=== PATIENT | female | born 1960 | race Caucasian/White ===

== ENCOUNTER 2017-07-23 13:48 | Emergency (ER) | payer MEDICAID ==
[~2017-07-23] VITALS: Ht 157.5 cm; Wt 68.0 kg
[~2017-07-23 13:48] MED LIST: ALBMDI INH; CYCL-10 PO; DEXL60CA3 PO; FLUT1AER INH; LORA10TA7 PO; NAPR-688 PO; PHEN-561 PO; TOPAMAX PO; TRAZ-123 PO
[2017-07-23 14:02] VITALS: BP_SYST 116
[2017-07-23] MEDS ORDERED: LIDOCAINE/EPI 2% 1:100000 20 ML VIAL INJ ONE (14:45)
[2017-07-23] MEDS ORDERED: SULFAMETHOXAZOLE/TRIMETHOPR DS 1 TABLET PO ONE (14:45)
[2017-07-23] MEDS ORDERED: CEPHALEXIN 500 MG CAPSULE PO ONE (14:45)
[2017-07-23] MEDS ORDERED: HYDROcodone/ACETAMIN 7.5-325 MG TAB PO ONE (15:30)
[2017-07-23 16:18] VITALS: BP_SYST 116
== END 2017-07-23 16:18 | disposition home or self-care (01) ==
LOC: SED 13:48
DX: M79.605 Pain in left leg (principal); J44.9 Chronic obstructive pulmonary disease, unspecified; K21.9 Gastro-esophageal reflux disease without esophagitis; Z86.14 Personal history of Methicillin resistant Staphylococcus aureus infection; Z91.041 Radiographic dye allergy status; Z88.5 Allergy status to narcotic agent; Z79.899 Other long term (current) drug therapy
CPT/HCPCS: 99284

== ENCOUNTER 2017-09-05 18:03 | Inpatient (IN) | payer MEDICAID ==
[~2017-09-05] VITALS: Ht 157.5 cm; Wt 67.6 kg
[2017-09-05 18:24] VITALS: BP_SYST 132
[2017-09-05] MEDS ORDERED: NACL 0.9% 1,000 ML IV ONE ×2 (19:15→20:15)
[2017-09-05 19:27] LABS: BASOPHILS # (AUTO) 0.1 K/uL (0.0-0.2); BASOPHILS % (AUTO) 1.3 % (0.0-2.0); EOSINOPHILS # (AUTO) 0.1 K/uL (0.0-0.4); EOSINOPHILS % (AUTO) 2.4 % (0.0-4.0); HEMATOCRIT 33.3 % (36-48); LYMPHOCYTES # (AUTO) 1.6 K/uL (1.0-5.5); LYMPHOCYTES % (AUTO) 34.2 % (20.5-51.5); MEAN CORPUSCULAR HEMOGLOBIN 27 pg (27-31); MEAN CORPUSCULAR HGB CONC 33 % (32-36); MEAN CORPUSCULAR VOLUME 82 fL (79.0-98.0); MONOCYTES # (AUTO) 0.4 K/uL (0.0-1.0); MONOCYTES % (AUTO) 7.9 % (1.7-9.3); NEUTROPHILS # (AUTO) 2.4 K/uL (1.8-7.7); NEUTROPHILS % (AUTO) 54.2 % (40.0-70.0); PLATELET COUNT (AUTO) 256 K/uL (130-430); RED BLOOD CELL COUNT(AUTO) 4.07 MIL/uL (4.2-6.2); RED CELL DISTRIBUTION WIDTH 15.6 % (9.0-15.0); WHITE BLOOD COUNT (AUTO) 4.6 K/uL (4.8-10.8)
[2017-09-05 19:36] LABS: CALCIUM 8.6 mg/dL (8.4-11.0); CREATININE 1.14 mg/dL (0.55-1.30); POTASSIUM 3.1 mmol/L (3.5-5.1)
[2017-09-05 19:40] LABS: ALBUMIN 3.8 g/dL (3.4-4.8); TOTAL BILIRUBIN 0.3 mg/dL (0.0-1.0)
[2017-09-05] MEDS ORDERED: KETOROLAC TROMETHAMINE 30 MG VIAL IVP ONE (20:15)
[2017-09-05] MEDS ORDERED: LEVOFLOXACIN 500 MG/D5W 100 ML IV ONE (20:15)
[2017-09-05] MEDS ORDERED: TRAZ-126 PO (20:32)
[2017-09-05] MEDS ORDERED: LIDP TP (20:33)
[2017-09-05] MEDS ORDERED: DICL100G16 TP (20:35)
[2017-09-05] MEDS ORDERED: FLUT1BLS3 INH (20:36)
[2017-09-05] MEDS ORDERED: OXYC-130 PO (20:37)
[2017-09-05] MEDS ORDERED: TOPI100T11 PO (20:38)
[2017-09-05] MEDS ORDERED: BUPR-120 PO (20:40)
[2017-09-05] MEDS ORDERED: ALEN10TA6 PO (20:40)
[2017-09-05] MEDS ORDERED: ONDANSETRON HCL 4 MG/2 ML VIAL IVP ONE (21:15)
[2017-09-05 22:28] LABS: BILIRUBIN,URINE NEGATIVE (NEGATIVE); BLOOD, URINE NEGATIVE (NEGATIVE); CLARITY/URINE CLEAR (CLEAR); COLOR,URINE YELLOW (YELLOW); GLUCOSE,URINE NEGATIVE (NEGATIVE); KETONES,URINE NEGATIVE (NEGATIVE); LEUKOCYTE ESTERASE ,URINE NEGATIVE (NEGATIVE); NITRITE, URINE NEGATIVE (NEGATIVE); PH,URINE 7.5 (5.0-8.0); PROTEIN URINE NEGATIVE (NEGATIVE); UROBILINOGEN,URINE 0.2 (0.2-1.0)
[2017-09-05 23:50] VITALS: BP_SYST 106
[2017-09-05] MEDS: D5/0.45 NS 1,000 ML IV SCH (23:58)
[2017-09-06] MEDS ORDERED: DIPHENOXYLATE HCL/ATROP SULF 2.5 MG TAB PO PRN (01:15)
[2017-09-06] MEDS: ONDANSETRON HCL 4 MG/2 ML VIAL IVP PRN ×2 (01:16→09:07)
[2017-09-06] MEDS: KETOROLAC TROMETHAMINE 15 MG VIAL IVP PRN ×4 (01:18→21:10)
[2017-09-06 08:00] VITALS: BP_SYST 94
[2017-09-06] MEDS ORDERED: FLUTICASONE/VILANTEROL 1 EACH BLST.W.DEV INH SCH (09:00)
[2017-09-06] MEDS: LORATADINE 10 MG TABLET PO SCH (09:08)
[2017-09-06] MEDS: buPROPion HCL 150 MG XL TAB PO SCH (09:08)
[2017-09-06] MEDS: CHOLESTYRAMINE/SUCROSE 4 GM/PACKET PO SCH ×3 (09:08→20:47)
[2017-09-06] MEDS: OXYCODONE/ACETAMINOPHEN 5-325 TABLET PO PRN ×2 (09:09→14:37)
[2017-09-06] MEDS: FLUTICASONE/VILANTEROL 1 EACH BLST.W.DEV INH SCH (09:15)
[2017-09-06] MEDS: LIDOCAINE PATCH 5% 1 EA TP SCH ×2 (10:08→20:47)
[2017-09-06 10:11] VITALS: BP_SYST 98
[2017-09-06 12:55] VITALS: BP_SYST 102
[2017-09-06] MEDS: D5/0.45 NS 1,000 ML IV SCH (15:28)
[2017-09-06 16:55] VITALS: BP_SYST 126
[2017-09-06 19:04] LABS: CALCIUM 7.5 mg/dL (8.4-11.0); CREATININE 0.89 mg/dL (0.55-1.30)
[2017-09-06 19:07] LABS: POTASSIUM 2.9 mmol/L (3.5-5.1)
[2017-09-06 20:00] VITALS: BP_SYST 128
[2017-09-06] MEDS ORDERED: KCL 40 mEq in 100 mL (PREMIX) 100 ML IV ONE (20:00)
[2017-09-06] MEDS ORDERED: POTASSIUM CHLORIDE 40 MEQ in NS 250 ML IV ONE (20:30)
[2017-09-06] MEDS ORDERED: POTASSIUM CHLORIDE 20 MEQ TAB.PRT.SR PO ONE (20:30)
[2017-09-06] MEDS: TOPIRAMATE 100 MG TABLET(Topamax) PO SCH (20:48)
[2017-09-06] MEDS: traZODone HCL 50 MG TABLET (DESYREL) PO SCH (20:48)
[2017-09-06] MEDS ORDERED: KCL 20 mEq in 100 mL (PREMIX) 100 ML IV ONE ×2 (21:00→23:00)
[2017-09-07 00:43] VITALS: BP_SYST 96
[2017-09-07] MEDS: D5/0.45 NS 1,000 ML IV SCH ×4 (00:47→23:20)
[2017-09-07 08:40] VITALS: BP_SYST 107
[2017-09-07] MEDS: FLUTICASONE/VILANTEROL 1 EACH BLST.W.DEV INH SCH (09:52)
[2017-09-07] MEDS: buPROPion HCL 150 MG XL TAB PO SCH (09:53)
[2017-09-07] MEDS: CHOLESTYRAMINE/SUCROSE 4 GM/PACKET PO SCH ×3 (09:53→21:14)
[2017-09-07] MEDS: LIDOCAINE PATCH 5% 1 EA TP SCH ×2 (09:53→21:14)
[2017-09-07] MEDS: LORATADINE 10 MG TABLET PO SCH (09:53)
[2017-09-07 12:00] VITALS: BP_SYST 109
[2017-09-07] MEDS: KETOROLAC TROMETHAMINE 15 MG VIAL IVP PRN ×2 (12:23→21:13)
[2017-09-07] MEDS: OXYCODONE/ACETAMINOPHEN 5-325 TABLET PO PRN ×2 (15:10→22:46)
[2017-09-07 16:00] VITALS: BP_SYST 105
[2017-09-07] MEDS: ONDANSETRON HCL 4 MG/2 ML VIAL IVP PRN (18:27)
[2017-09-07 21:10] VITALS: BP_SYST 102
[2017-09-07] MEDS: traZODone HCL 50 MG TABLET (DESYREL) PO SCH (21:13)
[2017-09-07] MEDS: TOPIRAMATE 100 MG TABLET(Topamax) PO SCH (21:13)
[2017-09-08 00:20] VITALS: BP_SYST 106
[2017-09-08] MEDS: KETOROLAC TROMETHAMINE 15 MG VIAL IVP PRN ×2 (06:01→22:19)
[2017-09-08 08:17] VITALS: BP_SYST 110
[2017-09-08] MEDS: buPROPion HCL 150 MG XL TAB PO SCH (08:23)
[2017-09-08] MEDS: ONDANSETRON HCL 4 MG/2 ML VIAL IVP PRN ×2 (08:24→21:21)
[2017-09-08] MEDS: D5/0.45 NS 1,000 ML IV SCH ×3 (08:24→22:19)
[2017-09-08] MEDS: FLUTICASONE/VILANTEROL 1 EACH BLST.W.DEV INH SCH (08:24)
[2017-09-08] MEDS: LORATADINE 10 MG TABLET PO SCH (08:24)
[2017-09-08] MEDS: CHOLESTYRAMINE/SUCROSE 4 GM/PACKET PO SCH ×3 (08:24→21:20)
[2017-09-08] MEDS: LIDOCAINE PATCH 5% 1 EA TP SCH ×2 (08:26→21:20)
[2017-09-08 12:00] VITALS: BP_SYST 115
[2017-09-08] MEDS ORDERED: fentaNYL CITRATE/PF 100 MCG/2 ML AMP ONE (12:54)
[2017-09-08] MEDS ORDERED: SIMETHICONE 40 MG/0.6 ML ML ONE (12:55)
[2017-09-08] MEDS ORDERED: MIDAZOLAM HCL 5 MG/5 ML VIAL ONE (12:55)
[2017-09-08] MEDS: fentaNYL CITRATE/PF 100 MCG/2 ML AMP ONE ×2 (12:58→14:08)
[2017-09-08] MEDS: MIDAZOLAM HCL 5 MG/5 ML VIAL ONE ×3 (13:00→14:08)
[2017-09-08 16:00] VITALS: BP_SYST 118
[2017-09-08] MEDS: METOCLOPRAMIDE HCL 10 MG/2 ML VIAL IVP SCH ×2 (17:09→23:12)
[2017-09-08 20:00] VITALS: BP_SYST 99
[2017-09-08] MEDS: TOPIRAMATE 100 MG TABLET(Topamax) PO SCH (21:20)
[2017-09-08] MEDS: traZODone HCL 50 MG TABLET (DESYREL) PO SCH (21:20)
[2017-09-08] MEDS: OXYCODONE/ACETAMINOPHEN 5-325 TABLET PO PRN (23:12)
[2017-09-09 02:01] VITALS: BP_SYST 108
[2017-09-09] MEDS: OXYCODONE/ACETAMINOPHEN 5-325 TABLET PO PRN ×3 (03:08→14:14)
[2017-09-09] MEDS: KETOROLAC TROMETHAMINE 15 MG VIAL IVP PRN ×2 (04:54→20:57)
[2017-09-09] MEDS: METOCLOPRAMIDE HCL 10 MG/2 ML VIAL IVP SCH ×3 (05:33→17:32)
[2017-09-09] MEDS: D5/0.45 NS 1,000 ML IV SCH ×2 (05:34→14:11)
[2017-09-09 07:47] VITALS: BP_SYST 92
[2017-09-09 07:56] LABS: EOSINOPHILS # (AUTO) 0.1 K/uL (0.0-0.4); EOSINOPHILS % (AUTO) 2.9 % (0.0-4.0); HEMATOCRIT 30.9 % (36-48); HEMOGLOBIN 10.1 g/dL (12.0-16.0); LYMPHOCYTES # (AUTO) 1.3 K/uL (1.0-5.5); LYMPHOCYTES % (AUTO) 27.5 % (20.5-51.5); MEAN CORPUSCULAR HEMOGLOBIN 27 pg (27-31); MEAN CORPUSCULAR HGB CONC 33 % (32-36); MEAN CORPUSCULAR VOLUME 83 fL (79.0-98.0); MONOCYTES # (AUTO) 0.4 K/uL (0.0-1.0); MONOCYTES % (AUTO) 7.4 % (1.7-9.3); NEUTROPHILS % (AUTO) 61.2 % (40.0-70.0); PLATELET COUNT (AUTO) 237 K/uL (130-430); RED BLOOD CELL COUNT(AUTO) 3.73 MIL/uL (4.2-6.2); RED CELL DISTRIBUTION WIDTH 15.3 % (9.0-15.0); WHITE BLOOD COUNT (AUTO) 4.9 K/uL (4.8-10.8)
[2017-09-09 08:12] LABS: CALCIUM 7.8 mg/dL (8.4-11.0); CREATININE 0.81 mg/dL (0.55-1.30); POTASSIUM 3.3 mmol/L (3.5-5.1)
[2017-09-09] MEDS: LORATADINE 10 MG TABLET PO SCH (08:13)
[2017-09-09] MEDS: buPROPion HCL 150 MG XL TAB PO SCH (08:13)
[2017-09-09] MEDS: CHOLESTYRAMINE/SUCROSE 4 GM/PACKET PO SCH ×3 (08:13→20:57)
[2017-09-09] MEDS: FLUTICASONE/VILANTEROL 1 EACH BLST.W.DEV INH SCH (08:13)
[2017-09-09] MEDS: LIDOCAINE PATCH 5% 1 EA TP SCH ×2 (08:13→20:57)
[2017-09-09] MEDS ORDERED: PANTOPRAZOLE SODIUM 40 MG TAB PO SCH (09:00)
[2017-09-09] MEDS ORDERED: POLYETHYLENE GLYCOL 3350, 17 GM/ POWD.PACK PO SCH (09:00)
[2017-09-09 12:38] VITALS: BP_SYST 93
[2017-09-09] MEDS ORDERED: POTASSIUM CHLORIDE 20 MEQ/PKT PACKET PO ONE (13:30)
[2017-09-09 17:11] VITALS: BP_SYST 95
[2017-09-09 17:44] VITALS: BP_SYST 92
[2017-09-09] MEDS: TOPIRAMATE 100 MG TABLET(Topamax) PO SCH (20:57)
[2017-09-09] MEDS: traZODone HCL 50 MG TABLET (DESYREL) PO SCH (20:57)
[2017-09-09 21:04] VITALS: BP_SYST 104
== END 2017-09-09 21:25 | disposition home or self-care (01) | DRG 249 ==
LOC: SED 18:03 → SMU 23:00
PROVIDERS: ADMIT Family Medicine; ATTEND Family Medicine
PROC: 0DB68ZX Excision of Stomach, Via Natural or Artificial Opening Endoscopic, Diagnostic (ICD-10-PCS; 2017-09-08)
PROC: 0DB98ZX Excision of Duodenum, Via Natural or Artificial Opening Endoscopic, Diagnostic (ICD-10-PCS; principal; 2017-09-08 12:50)
DX: A09 Infectious gastroenteritis and colitis, unspecified (principal); K31.84 Gastroparesis; F32.9 Major depressive disorder, single episode, unspecified; K44.9 Diaphragmatic hernia without obstruction or gangrene; G89.29 Other chronic pain; J44.9 Chronic obstructive pulmonary disease, unspecified; K21.9 Gastro-esophageal reflux disease without esophagitis; E86.0 Dehydration; D72.819 Decreased white blood cell count, unspecified; K57.90 Diverticulosis of intestine, part unspecified, without perforation or abscess without bleeding; K59.09 Other constipation; Z88.6 Allergy status to analgesic agent; Z88.8 Allergy status to other drugs, medicaments and biological substances; Z91.041 Radiographic dye allergy status; Z79.899 Other long term (current) drug therapy; Z90.49 Acquired absence of other specified parts of digestive tract; Z90.89 Acquired absence of other organs
CPT/HCPCS: 36415; 43239; 80048; 80053; 81003; 83605; 83690-TC; 83735-TC; 85025; 87040-TC; 87081; 88305; 88312; 88313; 96361; 96365; 96375; 99285; J1885; J1956; J2250; J2405; J2765; J3010; J3480; J7030

== ENCOUNTER 2017-09-27 21:09 | Emergency (ER) | payer MEDICAID ==
[~2017-09-27] VITALS: Ht 157.5 cm; Wt 69.4 kg
[~2017-09-27 21:09] MED LIST changes: -ALBMDI INH; +ALEN10TA6 PO; +BUPR-120 PO; -CYCL-10 PO; -DEXL60CA3 PO; +DICL100G19 TP; -FLUT1AER INH; +FLUT1BLS3 INH; +LIDP TP; -NAPR-688 PO; +OXYC-130 PO; -PHEN-561 PO; -TOPAMAX PO; +TOPI100T11 PO; -TRAZ-123 PO; +TRAZ-126 PO
[2017-09-27 21:24] VITALS: BP_SYST 114
[2017-09-27] MEDS ORDERED: cefTRIAXone 1 GM in LIDOCAINE 1%, 20 ML MDV 2.1 ML IM ONE (21:45)
[2017-09-27] MEDS ORDERED: cefTRIAXone 1 GM IVPB PREMIX 50 ML IV ONE (21:45)
[2017-09-27 21:55] VITALS: BP_SYST 122
== END 2017-09-27 21:55 | disposition home or self-care (01) ==
LOC: SED 21:09
DX: L03.116 Cellulitis of left lower limb (principal); J44.9 Chronic obstructive pulmonary disease, unspecified; K21.9 Gastro-esophageal reflux disease without esophagitis; Z86.14 Personal history of Methicillin resistant Staphylococcus aureus infection; Z79.899 Other long term (current) drug therapy; Z88.6 Allergy status to analgesic agent; Z88.8 Allergy status to other drugs, medicaments and biological substances; W57.XXXA Bitten or stung by nonvenomous insect and other nonvenomous arthropods, initial encounter; Y93.89 Activity, other specified; Y92.89 Other specified places as the place of occurrence of the external cause; Y99.8 Other external cause status
CPT/HCPCS: 96372; 99283; J0696; J2001

== ENCOUNTER 2018-02-18 11:49 | Emergency (ER) | payer MEDICAID ==
[~2018-02-18] VITALS: Ht 157.5 cm; Wt 65.8 kg
[2018-02-18 11:50] VITALS: BP_SYST 133
[2018-02-18] MEDS: BACITRACIN 1 GM OINT TP ONE (12:38)
[2018-02-18] MEDS: LIDOCAINE 1% 10 MG/ML, 20 ML MDV IJ ONE (12:38)
[2018-02-18] MEDS: KETOROLAC TROMETHAMINE 30 MG VIAL IM ONE (12:39)
[2018-02-18 12:47] VITALS: BP_SYST 133
== END 2018-02-18 12:47 | disposition home or self-care (01) ==
LOC: SED 11:49
DX: L02.412 Cutaneous abscess of left axilla (principal); R03.0 Elevated blood-pressure reading, without diagnosis of hypertension; J44.9 Chronic obstructive pulmonary disease, unspecified; K21.9 Gastro-esophageal reflux disease without esophagitis; Z88.6 Allergy status to analgesic agent; Z88.8 Allergy status to other drugs, medicaments and biological substances; Z91.041 Radiographic dye allergy status; Z79.899 Other long term (current) drug therapy
CPT/HCPCS: 10060; 96372; 99283; J1885; J2001

== ENCOUNTER 2018-04-05 00:22 | Emergency (ER) | payer MEDICAID ==
[~2018-04-05] VITALS: Ht 157.5 cm; Wt 65.8 kg
[2018-04-05 00:22] VITALS: BP_SYST 135
[2018-04-05] MEDS ORDERED: KETOROLAC TROMETHAMINE 30 MG VIAL IVP ONE (00:45)
[2018-04-05] MEDS ORDERED: ASPIRIN 81 MG TAB.CHEW PO ONE (00:45)
[2018-04-05] MEDS ORDERED: NACL 0.9% 1,000 ML IV ONE (00:45)
[2018-04-05 01:16] LABS: BASOPHILS # (AUTO) 0.1 K/uL (0.0-0.2); BASOPHILS % (AUTO) 0.8 % (0.0-2.0); EOSINOPHILS # (AUTO) 0.1 K/uL (0.0-0.4); EOSINOPHILS % (AUTO) 1.6 % (0.0-4.0); HEMATOCRIT 35.8 % (36-48); HEMOGLOBIN 11.4 g/dL (12.0-16.0); LYMPHOCYTES # (AUTO) 2.1 K/uL (1.0-5.5); LYMPHOCYTES % (AUTO) 33.5 % (20.5-51.5); MEAN CORPUSCULAR HEMOGLOBIN 26 pg (27-31); MEAN CORPUSCULAR HGB CONC 32 % (32-36); MEAN CORPUSCULAR VOLUME 81 fL (79.0-98.0); MONOCYTES # (AUTO) 0.5 K/uL (0.0-1.0); MONOCYTES % (AUTO) 7.5 % (1.7-9.3); NEUTROPHILS # (AUTO) 3.5 K/uL (1.8-7.7); NEUTROPHILS % (AUTO) 56.6 % (40.0-70.0); PLATELET COUNT (AUTO) 327 K/uL (130-430); RED BLOOD CELL COUNT(AUTO) 4.45 MIL/uL (4.2-6.2); RED CELL DISTRIBUTION WIDTH 15.5 % (9.0-15.0); WHITE BLOOD COUNT (AUTO) 6.3 K/uL (4.8-10.8)
[2018-04-05 01:26] LABS: CALCIUM 8.7 mg/dL (8.4-11.0); CREATININE 0.77 mg/dL (0.55-1.30)
[2018-04-05] MEDS ORDERED: ONDANSETRON HCL 4 MG/2 ML VIAL IVP ONE ×2 (01:30→03:30)
[2018-04-05 01:31] LABS: PROTHROMBIN TIME 9.9 SECS (9.5-12.5)
[2018-04-05 01:33] LABS: ALBUMIN 3.5 g/dL (3.4-4.8); TOTAL BILIRUBIN 0.2 mg/dL (0.0-1.0)
[2018-04-05 01:35] LABS: POTASSIUM 2.9 mmol/L (3.5-5.1)
[2018-04-05] MEDS ORDERED: LOPERAMIDE HCL 2 MG CAPSULE PO ONE (01:45)
[2018-04-05] MEDS ORDERED: KCL 40 mEq in 100 mL (PREMIX) 100 ML IV ONE (01:45)
[2018-04-05] MEDS ORDERED: KCL 20 mEq in 100 mL (PREMIX) 200 ML IV ONE (01:57)
[2018-04-05] MEDS ORDERED: MAG HYDROX/AL HYDROX/SIMETH 30 ML, BELLADONNA ALKALOIDS/PHENOBARB 10 ML, LIDOCAINE VISC... PO ONE ×3 (02:45)
[2018-04-05] MEDS ORDERED: POTASSIUM CHLORIDE 20 MEQ TAB.PRT.SR PO ONE (03:00)
[2018-04-05 03:18] LABS: BILIRUBIN,URINE NEGATIVE (NEGATIVE); BLOOD, URINE NEGATIVE (NEGATIVE); CLARITY/URINE CLEAR (CLEAR); COLOR,URINE YELLOW (YELLOW); GLUCOSE,URINE NEGATIVE (NEGATIVE); KETONES,URINE NEGATIVE (NEGATIVE); LEUKOCYTE ESTERASE ,URINE NEGATIVE (NEGATIVE); NITRITE, URINE NEGATIVE (NEGATIVE); PROTEIN URINE NEGATIVE (NEGATIVE); UROBILINOGEN,URINE 0.2 (0.2-1.0)
[2018-04-05 03:26] LABS: BARBITURATE, URINE NEGATIVE (NEG <=200); BENZODIAZEPINE, URINE NEGATIVE (NEG <=150); CANNABINOID, URINE NEGATIVE (NEG <=50); COCAINE, URINE NEGATIVE (NEG <=150); METHAMPHETAMINES SCREEN,URINE NEGATIVE (NEG <=500); OPIATE, URINE NEGATIVE (NEG <=100); PHENCYCLIDINE SCREEN,URINE NEGATIVE (NEG <=25); UR TRICYCLIC ANTIDEPRESSANTS NEGATIVE (NEG <=300); URINE AMPHETAMINE NEGATIVE (NEG <=500); URINE METHADONE NEGATIVE (NEG <=200); URINE OXYCODONE SCREEN NEGATIVE (NEG <=100); URINE PROPOXYPHENE SCREEN NEGATIVE (NEG <=300)
[2018-04-05] MEDS ORDERED: KETOROLAC TROMETHAMINE 15 MG VIAL IVP ONE (03:30)
[2018-04-05 03:42] VITALS: BP_SYST 118
== END 2018-04-05 03:30 | disposition home or self-care (01) ==
LOC: SED 00:22
DX: R07.89 Other chest pain (principal); E87.6 Hypokalemia; D64.9 Anemia, unspecified; R19.7 Diarrhea, unspecified; J44.9 Chronic obstructive pulmonary disease, unspecified; K21.9 Gastro-esophageal reflux disease without esophagitis; I10 Essential (primary) hypertension; Z88.6 Allergy status to analgesic agent; Z88.8 Allergy status to other drugs, medicaments and biological substances; Z91.041 Radiographic dye allergy status; Z79.82 Long term (current) use of aspirin
CPT/HCPCS: 36415; 71045; 80053; 80307; 81003; 83605; 84484; 85025; 85610; 85730; 87040; 87086; 93005; 96365; 96375; 96376; 99284; J1885 ×2; J2001; J2405; J3480; J7030

== ENCOUNTER 2018-04-14 18:49 | Emergency (ER) | payer MEDICAID ==
[~2018-04-14] VITALS: Ht 157.5 cm; Wt 63.5 kg
[~2018-04-14 18:49] MED LIST changes: -TRAZ-126 PO; +TRAZ-219 PO
[2018-04-14 19:13] VITALS: BP_SYST 133
[2018-04-14 20:11] LABS: BASOPHILS # (AUTO) 0.1 K/uL (0.0-0.2); BASOPHILS % (AUTO) 1.1 % (0.0-2.0); EOSINOPHILS # (AUTO) 0.1 K/uL (0.0-0.4); EOSINOPHILS % (AUTO) 1.7 % (0.0-4.0); HEMATOCRIT 34.2 % (36-48); HEMOGLOBIN 10.8 g/dL (12.0-16.0); LYMPHOCYTES # (AUTO) 1.9 K/uL (1.0-5.5); LYMPHOCYTES % (AUTO) 31.6 % (20.5-51.5); MEAN CORPUSCULAR HEMOGLOBIN 25 pg (27-31); MEAN CORPUSCULAR HGB CONC 32 % (32-36); MEAN CORPUSCULAR VOLUME 81 fL (79.0-98.0); MONOCYTES # (AUTO) 0.5 K/uL (0.0-1.0); MONOCYTES % (AUTO) 7.8 % (1.7-9.3); NEUTROPHILS # (AUTO) 3.5 K/uL (1.8-7.7); NEUTROPHILS % (AUTO) 57.8 % (40.0-70.0); PLATELET COUNT (AUTO) 328 K/uL (130-430); RED BLOOD CELL COUNT(AUTO) 4.24 MIL/uL (4.2-6.2); RED CELL DISTRIBUTION WIDTH 15.9 % (9.0-15.0); WHITE BLOOD COUNT (AUTO) 6.1 K/uL (4.8-10.8)
[2018-04-14 20:25] LABS: CALCIUM 8.3 mg/dL (8.4-11.0); CREATININE 0.8 mg/dL (0.55-1.30); POTASSIUM 3.3 mmol/L (3.5-5.1)
[2018-04-14 20:29] LABS: ALBUMIN 3.9 g/dL (3.4-4.8); TOTAL BILIRUBIN 0.4 mg/dL (0.0-1.0)
--- NOTE | 2018-04-14 22:43 | NUR ---
Pt c/o lower abdominal and back pain, intermittent x 3 months. Pt states that she vomited last night and had an episode of diarrhea at 1500 today. No active vomiting noted at this time.
--- NOTE | 2018-04-14 22:43 | NUR ---
2243 - Patient to ER bed 6 to gown for evaluation. Side rails up. Report given to ZAHRA Conner.
--- NOTE | 2018-04-14 23:30 | NUR ---
Dr. Lockett at bedside.
--- NOTE | 2018-04-15 | NUR ---
Pt resting with eyes closed, respirations even and non-labored, VSS.
--- NOTE | 2018-04-15 01:15 | NUR ---
Pt resting quielty, even and non-labored respirations, NAD. VSS.
[2018-04-15 01:24] LABS: BILIRUBIN,URINE NEGATIVE (NEGATIVE); BLOOD, URINE NEGATIVE (NEGATIVE); CLARITY/URINE CLEAR (CLEAR); COLOR,URINE YELLOW (YELLOW); GLUCOSE,URINE NEGATIVE (NEGATIVE); KETONES,URINE TRACE (NEGATIVE); LEUKOCYTE ESTERASE ,URINE NEGATIVE (NEGATIVE); NITRITE, URINE NEGATIVE (NEGATIVE); PH,URINE 6.5 (5.0-8.0); PROTEIN URINE TRACE (NEGATIVE); UROBILINOGEN,URINE 0.2 (0.2-1.0)
[2018-04-15 01:39] LABS: BACTERIA,URINE FEW /HPF (None Seen); MUCUS,URINE None Seen /LPF (None Seen); RBC,URINE 0-3 /HPF (0-3); WBC,URINE 0-3 /HPF (0-3)
[2018-04-15] MEDS ORDERED: KETOROLAC TROMETHAMINE 30 MG VIAL IVP ONE (02:30)
[2018-04-15] MEDS ORDERED: KETOROLAC TROMETHAMINE 30 MG VIAL IM ONE (02:45)
--- NOTE | 2018-04-15 02:45 | NUR ---
Pt to CT via stretcher in stable condition.
--- NOTE | 2018-04-15 02:55 | NUR ---
Pt returns from CT.
--- NOTE | 2018-04-15 03:19 | NUR ---
Pt c/o lower abdominal pain that radiates to lower back. Pt medicated with Toradol 30 mg IM.
--- NOTE | 2018-04-15 03:40 | NUR ---
Pt c/o nausea and requests medication. Dr. Lockett notified.
[2018-04-15] MEDS ORDERED: ONDANSETRON 4 MG ODT TAB PO ONE (03:45)
--- NOTE | 2018-04-15 04:15 | NUR ---
No needs verbalized at this time. Pt states that she is ready to go home. Dr. Lockett notified.
[2018-04-15 04:51] VITALS: BP_SYST 138
--- NOTE | 2018-04-15 04:51 | NUR ---
Patient given written and verbal discharge instructions and verbalizes understanding. ER MD discussed with patient the results and treatment provided. Patient in stable condition. ID arm band removed. Rx of Prilosec given. Patient educated on pain management and to follow up with PMD. Pain Scale 3/10, tolerable. Opportunity for questions provided and answered. Medication side effect fact sheet provided.
== END 2018-04-15 04:51 | disposition home or self-care (01) ==
LOC: SED 18:49
DX: R10.84 Generalized abdominal pain (principal); J44.9 Chronic obstructive pulmonary disease, unspecified; K21.9 Gastro-esophageal reflux disease without esophagitis; I10 Essential (primary) hypertension; Z90.89 Acquired absence of other organs; Z88.6 Allergy status to analgesic agent; Z88.8 Allergy status to other drugs, medicaments and biological substances; Z91.041 Radiographic dye allergy status; Z79.899 Other long term (current) drug therapy
CPT/HCPCS: 36415; 74176; 80053; 81000; 83690; 85025; 96372; 99284; J1885; Q0162

== ENCOUNTER 2018-06-03 18:44 | Emergency (ER) | payer MEDICAID ==
[~2018-06-03] VITALS: Ht 157.5 cm; Wt 61.2 kg
[2018-06-03 19:05] VITALS: BP_SYST 140
[2018-06-03 19:37] LABS: BASOPHILS # (AUTO) 0.1 K/uL (0.0-0.2); BASOPHILS % (AUTO) 1.2 % (0.0-2.0); EOSINOPHILS # (AUTO) 0.1 K/uL (0.0-0.4); EOSINOPHILS % (AUTO) 1.8 % (0.0-4.0); HEMATOCRIT 33.2 % (36-48); HEMOGLOBIN 10.3 g/dL (12.0-16.0); LYMPHOCYTES # (AUTO) 1.6 K/uL (1.0-5.5); LYMPHOCYTES % (AUTO) 33.5 % (20.5-51.5); MEAN CORPUSCULAR HEMOGLOBIN 24 pg (27-31); MEAN CORPUSCULAR HGB CONC 31 % (32-36); MEAN CORPUSCULAR VOLUME 78 fL (79.0-98.0); MONOCYTES # (AUTO) 0.5 K/uL (0.0-1.0); MONOCYTES % (AUTO) 10.4 % (1.7-9.3); NEUTROPHILS # (AUTO) 2.5 K/uL (1.8-7.7); NEUTROPHILS % (AUTO) 53.1 % (40.0-70.0); PLATELET COUNT (AUTO) 326 K/uL (130-430); RED BLOOD CELL COUNT(AUTO) 4.26 MIL/uL (4.2-6.2); RED CELL DISTRIBUTION WIDTH 15.9 % (9.0-15.0); WHITE BLOOD COUNT (AUTO) 4.7 K/uL (4.8-10.8)
[2018-06-03 19:50] LABS: CREATININE 1.04 mg/dL (0.55-1.30)
[2018-06-03 19:55] LABS: ALBUMIN 3.8 g/dL (3.4-4.8); TOTAL BILIRUBIN 0.4 mg/dL (0.0-1.0)
[2018-06-03 19:56] LABS: POTASSIUM 2.9 mmol/L (3.5-5.1)
--- NOTE | 2018-06-03 21:58 | NUR ---
Pt placed to ER bed 07, report given to ZAHRA Sewell.
--- NOTE | 2018-06-03 22:01 | NUR ---
2200 - pt c/o right flank pain. states she went to the doctor and had blood work done that showed possible kidney issue, but has not had a diagnosis. Pt is A&XO4, vss. reports diarrhea has stopped, but still having nausea and vomiting.
--- NOTE | 2018-06-03 22:01 | NUR ---
2201 - ER at bedside examining patient.
[2018-06-03] MEDS ORDERED: KETOROLAC TROMETHAMINE 30 MG VIAL IVP ONE (22:15)
[2018-06-03] MEDS ORDERED: POTASSIUM CHLORIDE 10 MEQ TAB.PRT.SR PO ONE (22:30)
[2018-06-03] MEDS ORDERED: KCL 10 mEq in 50 mL (PREMIX) 50 ML IV ONE (22:30)
[2018-06-04] MEDS ORDERED: HYDROcodone/ACETAMIN 5-325 MG TAB (NORCO/ VICODIN) PO ONE (00:45)
[2018-06-04] MEDS ORDERED: ONDANSETRON HCL 4 MG/2 ML VIAL IVP ONE (01:00)
[2018-06-04] MEDS ORDERED: DIPHENHYDRAMINE INJ 50 MG/ML VIAL IVP ONE (01:00)
[2018-06-04 01:09] VITALS: BP_SYST 132
--- NOTE | 2018-06-04 01:09 | NUR ---
Patient given written and verbal discharge instructions and verbalizes understanding. ER MD discussed with patient the results and treatment provided. Patient in stable condition. ID arm band removed. IV catheter removed intact and dressing applied, no active bleeding. Rx of [place] and Zofran given. Patient educated on pain management and to follow up with PMD. Pain Scale 4/10. Opportunity for questions provided and answered. Medication side effect fact sheet provided.
[2018-06-04 01:20] LABS: CREATININE 0.85 mg/dL (0.55-1.30)
== END 2018-06-04 01:09 | disposition home or self-care (01) ==
LOC: SED 18:44
DX: K57.90 Diverticulosis of intestine, part unspecified, without perforation or abscess without bleeding (principal); K52.9 Noninfective gastroenteritis and colitis, unspecified; N23 Unspecified renal colic; J44.9 Chronic obstructive pulmonary disease, unspecified; K21.9 Gastro-esophageal reflux disease without esophagitis; I10 Essential (primary) hypertension; Z88.6 Allergy status to analgesic agent; Z88.8 Allergy status to other drugs, medicaments and biological substances; Z91.041 Radiographic dye allergy status; Z79.899 Other long term (current) drug therapy
CPT/HCPCS: 36415; 74176; 80048; 80053; 83690; 85025; 96365; 96366; 96375; 99284; J1200; J1885; J2405; J3480; J7040

== ENCOUNTER 2019-02-11 18:35 | Emergency (ER) | payer MEDICAID ==
[~2019-02-11] VITALS: Ht 157.5 cm; Wt 68.0 kg
[~2019-02-11 18:35] MED LIST changes: -ALEN10TA6 PO; +ALEN10TA7 PO
--- NOTE | 2019-02-11 18:37 | NUR ---
PT CALLED FOR TRIAGE, UNABLE TO LOCATE PT.
[2019-02-11 19:20] VITALS: BP_SYST 124
--- NOTE | 2019-02-11 19:24 | NUR ---
TRPatient triaged and placed in waiting room. VSS and patient appears in no acute distress at this time. Accompanied by visitor, awaiting available bed, and MD notified of need for MSE.
--- NOTE | 2019-02-11 19:32 | NUR ---
Patient to ER bed 8 to gown for evaluation. Side rails up. Report given to Ena SWEENEY.
--- NOTE | 2019-02-11 19:40 | NUR ---
Pt presents to ER with with multiple complaints. Pt states she broke 5 right ribs in June and fell 3 days and pain has returned. Pt states right rib pain is 9/10 and describes it as throbbing. Pt states throat hurts, headache, productive cough, dizziness, nausea, and SOB. Pt states symptoms started a week ago. Pt states throat and head pain is 8/10. Lung sounds clear bilaterally. Unlabored breathing.
--- NOTE | 2019-02-11 19:50 | NUR ---
ER Dr. Diaz at bedside examining patient.
[2019-02-11] MEDS ORDERED: KETOROLAC TROMETHAMINE 60 MG/2 ML VIAL IM ONE (20:00)
[2019-02-11] MEDS ORDERED: PENICILLIN G BENZATHINE 1.2 MMU/2 ML SYR IM ONE (20:00)
--- NOTE | 2019-02-11 20:33 | NUR ---
Pt medicated with 2 IM injections. No bleeding noted. Pt tolerated well. Will continue to monitor.
[2019-02-11 21:00] VITALS: BP_SYST 118
--- NOTE | 2019-02-11 21:00 | NUR ---
Patient given written and verbal discharge instructions and verbalizes understanding. ER MD discussed with patient the results and treatment provided. Patient in stable condition. ID arm band removed. Rx of Motrin, [place], Cipro given. Patient educated on pain management and to follow up with PMD. Pain Scale 0. Opportunity for questions provided and answered. Medication side effect fact sheet provided.
== END 2019-02-11 21:00 | disposition home or self-care (01) ==
LOC: SED 18:35
DX: S20.211A Contusion of right front wall of thorax, initial encounter (principal); J02.0 Streptococcal pharyngitis; N39.0 Urinary tract infection, site not specified; J44.9 Chronic obstructive pulmonary disease, unspecified; K21.9 Gastro-esophageal reflux disease without esophagitis; I10 Essential (primary) hypertension; E07.9 Disorder of thyroid, unspecified; Z79.899 Other long term (current) drug therapy; Z88.8 Allergy status to other drugs, medicaments and biological substances; Z88.6 Allergy status to analgesic agent; Z90.710 Acquired absence of both cervix and uterus; Z86.14 Personal history of Methicillin resistant Staphylococcus aureus infection; W18.39XA Other fall on same level, initial encounter; Y93.89 Activity, other specified; Y92.89 Other specified places as the place of occurrence of the external cause; Y99.8 Other external cause status
CPT/HCPCS: 71045; 81002; 96372; 99283; J0561; J1885

== ENCOUNTER 2019-03-20 18:28 | Emergency (ER) | payer MEDICAID ==
[~2019-03-20] VITALS: Ht 157.5 cm; Wt 66.2 kg
[2019-03-20 18:30] VITALS: BP_SYST 123
--- NOTE | 2019-03-20 18:30 | NUR ---
BROUGHT BACK TO HALLWAY BED AND TRIAGED. REPORT GIVEN TO LUCERO
--- NOTE | 2019-03-20 18:45 | NUR ---
pt came to ER for lower R back pain 11/04 stated she took 2 tramadol at 1600 awaiting
--- NOTE | 2019-03-20 18:50 | NUR ---
ARTHUR Espinal at bedside examining patient.
--- NOTE | 2019-03-20 19:25 | NUR ---
care endorsed to Mirian SWEENEY. Pt is in stable condition.
--- NOTE | 2019-03-20 20:35 | NUR ---
ER Dr. Wu at bedside examining patient.
[2019-03-20 21:22] LABS: BASOPHILS % (AUTO) 0.5 % (0.0-2.0); EOSINOPHILS # (AUTO) 0.2 K/uL (0.0-0.4); EOSINOPHILS % (AUTO) 2.6 % (0.0-4.0); HEMATOCRIT 31.5 % (36-48); HEMOGLOBIN 10.1 g/dL (12.0-16.0); LYMPHOCYTES # (AUTO) 1.6 K/uL (1.0-5.5); LYMPHOCYTES % (AUTO) 27.1 % (20.5-51.5); MEAN CORPUSCULAR HEMOGLOBIN 26 pg (27-31); MEAN CORPUSCULAR HGB CONC 32 % (32-36); MEAN CORPUSCULAR VOLUME 81 fL (79.0-98.0); MONOCYTES # (AUTO) 0.4 K/uL (0.0-1.0); MONOCYTES % (AUTO) 7.3 % (1.7-9.3); NEUTROPHILS # (AUTO) 3.8 K/uL (1.8-7.7); NEUTROPHILS % (AUTO) 62.5 % (40.0-70.0); PLATELET COUNT (AUTO) 280 K/uL (130-430); RED CELL DISTRIBUTION WIDTH 17.4 % (9.0-15.0); WHITE BLOOD COUNT (AUTO) 6.1 K/uL (4.8-10.8)
[2019-03-20 21:29] LABS: CALCIUM 8.4 mg/dL (8.4-11.0); CREATININE 0.77 mg/dL (0.55-1.30); POTASSIUM 3.8 mmol/L (3.5-5.1)
[2019-03-20 21:37] LABS: ALBUMIN 3.2 g/dL (3.4-4.8); TOTAL BILIRUBIN 0.2 mg/dL (0.0-1.0)
[2019-03-20] MEDS ORDERED: KETOROLAC TROMETHAMINE 60 MG/2 ML VIAL IM ONE (23:30)
[2019-03-20 23:31] LABS: BILIRUBIN,URINE NEGATIVE (NEGATIVE); BLOOD, URINE 1+ (NEGATIVE); CLARITY/URINE CLEAR (CLEAR); COLOR,URINE YELLOW (YELLOW); GLUCOSE,URINE NEGATIVE (NEGATIVE); KETONES,URINE NEGATIVE (NEGATIVE); LEUKOCYTE ESTERASE ,URINE NEGATIVE (NEGATIVE); NITRITE, URINE NEGATIVE (NEGATIVE); PROTEIN URINE NEGATIVE (NEGATIVE); UROBILINOGEN,URINE 0.2 (0.2-1.0)
[2019-03-20 23:40] LABS: BACTERIA,URINE MANY /HPF (None Seen)
[2019-03-20 23:42] LABS: BARBITURATE, URINE NEGATIVE (NEG <=200); BENZODIAZEPINE, URINE NEGATIVE (NEG <=150); CANNABINOID, URINE NEGATIVE (NEG <=50); COCAINE, URINE NEGATIVE (NEG <=150); METHAMPHETAMINES SCREEN,URINE NEGATIVE (NEG <=500); OPIATE, URINE NEGATIVE (NEG <=100); PHENCYCLIDINE SCREEN,URINE NEGATIVE (NEG <=25); UR TRICYCLIC ANTIDEPRESSANTS POSITIVE (NEG <=300); URINE AMPHETAMINE NEGATIVE (NEG <=500); URINE METHADONE NEGATIVE (NEG <=200); URINE OXYCODONE SCREEN NEGATIVE (NEG <=100); URINE PROPOXYPHENE SCREEN NEGATIVE (NEG <=300)
[2019-03-20 23:45] VITALS: BP_SYST 120
--- NOTE | 2019-03-20 23:45 | NUR ---
Patient given written and verbal discharge instructions and verbalizes understanding. ER MD discussed with patient the results and treatment provided. Patient in stable condition. ID arm band removed. No IV Rx of Paola Odom 5/325, Bentyl given. Patient educated on pain management and to follow up with PMD. Pain Scale 0/10. Opportunity for questions provided and answered. Medication side effect fact sheet provided.
== END 2019-03-20 23:45 | disposition home or self-care (01) ==
LOC: SED 18:28
DX: M54.5 Low back pain (principal); R10.11 Right upper quadrant pain; J40 Bronchitis, not specified as acute or chronic; R31.9 Hematuria, unspecified; J44.9 Chronic obstructive pulmonary disease, unspecified; K21.9 Gastro-esophageal reflux disease without esophagitis; I10 Essential (primary) hypertension; Z88.5 Allergy status to narcotic agent; Z88.8 Allergy status to other drugs, medicaments and biological substances; Z79.899 Other long term (current) drug therapy
CPT/HCPCS: 36415; 71046; 80053; 80307; 81000; 82550; 83690; 85025; 86710; 87086; 93005; 96372; 99284; J1885; 87186-TC

== ENCOUNTER 2019-09-04 02:08 | Emergency (ER) | payer MEDICAID, SELFPAY ==
[~2019-09-04] VITALS: Ht 157.5 cm; Wt 72.6 kg
[2019-09-04 02:15] VITALS: BP_SYST 131
[2019-09-04] MEDS ORDERED: ONDANSETRON 4 MG ODT TAB PO ONE ×2 (03:15→04:30)
[2019-09-04] MEDS ORDERED: ONDANSETRON 4 MG ODT TAB ONE (03:32)
[2019-09-04] MEDS ORDERED: ACETAMINOPHEN 325 MG TABLET PO ONE (04:00)
[2019-09-04] MEDS ORDERED: IBUPROFEN 600 MG TABLET PO ONE (04:15)
[2019-09-04] MEDS ORDERED: IBUPROFEN 600 MG TABLET ONE (04:24)
[2019-09-04] MEDS ORDERED: METOCLOPRAMIDE HCL 10 MG TABLET PO ONE (04:30)
[2019-09-04 06:00] VITALS: BP_SYST 120
== END 2019-09-04 06:00 | disposition home or self-care (01) ==
LOC: SED 02:08
DX: J06.9 Acute upper respiratory infection, unspecified (principal); R05 Cough; R50.9 Fever, unspecified; R51 Headache; E03.9 Hypothyroidism, unspecified; Z90.49 Acquired absence of other specified parts of digestive tract; Z90.710 Acquired absence of both cervix and uterus; Z79.899 Other long term (current) drug therapy; Z88.6 Allergy status to analgesic agent; Z88.8 Allergy status to other drugs, medicaments and biological substances; Z20.828 Contact with and (suspected) exposure to other viral communicable diseases
CPT/HCPCS: 71045; 99284; C9803; J8597; Q0162; U0003

== ENCOUNTER 2019-09-25 18:43 | Emergency (ER) | payer MEDICAID, SELFPAY ==
[~2019-09-25] VITALS: Ht 157.5 cm; Wt 74.8 kg
[2019-09-25 18:51] VITALS: BP_SYST 128
[2019-09-25] MEDS ORDERED: KETOROLAC TROMETHAMINE 30 MG VIAL IM ONE (20:15)
[2019-09-25 21:03] LABS: BASOPHILS % (AUTO) 0.7 % (0.0-2.0); EOSINOPHILS # (AUTO) 0.2 K/uL (0.0-0.4); EOSINOPHILS % (AUTO) 3.1 % (0.0-4.0); HEMATOCRIT 32.1 % (36-48); HEMOGLOBIN 10.1 g/dL (12.0-16.0); LYMPHOCYTES # (AUTO) 1.3 K/uL (1.0-5.5); MEAN CORPUSCULAR HEMOGLOBIN 26 pg (27-31); MEAN CORPUSCULAR HGB CONC 31 % (32-36); MEAN CORPUSCULAR VOLUME 81 fL (79.0-98.0); MONOCYTES # (AUTO) 0.4 K/uL (0.0-1.0); MONOCYTES % (AUTO) 8.3 % (1.7-9.3); NEUTROPHILS # (AUTO) 3.1 K/uL (1.8-7.7); NEUTROPHILS % (AUTO) 61.9 % (40.0-70.0); PLATELET COUNT (AUTO) 269 K/uL (130-430); RED BLOOD CELL COUNT(AUTO) 3.95 MIL/uL (4.2-6.2); RED CELL DISTRIBUTION WIDTH 17.5 % (9.0-15.0); WHITE BLOOD COUNT (AUTO) 5.1 K/uL (4.8-10.8)
[2019-09-25 21:15] LABS: ANION GAP 11 (5-15); CALCIUM 8.6 mg/dL (8.4-11.0); CHLORIDE 106 mmol/L (98-107); CREATININE 1.01 mg/dL (0.55-1.30); GLUCOSE 102 mg/dL (70-99); SODIUM SERUM 140 mmol/L (136-145); UREA NITROGEN, BLOOD 22 mg/dL (8-21)
[2019-09-25 21:17] LABS: POTASSIUM 2.8 mmol/L (3.5-5.1)
[2019-09-25 21:18] LABS: GFR AFRICAN AMERICAN 72 mL/min (>90)
[2019-09-25 21:24] LABS: ALANINE AMINOTRANSFERASE 23 U/L (12-78); ALBUMIN 3.4 g/dL (3.4-4.8); ASPARTATE AMINOTRANSFERASE 25 U/L (10-37); TOTAL BILIRUBIN 0.3 mg/dL (0.0-1.0)
[2019-09-25] MEDS ORDERED: POTASSIUM CHLORIDE 20 MEQ TAB.PRT.SR PO ONE (21:30)
[2019-09-25 23:07] VITALS: BP_SYST 12
[2019-09-25 23:22] LABS: BARBITURATE, URINE NEGATIVE (NEG <=200); BENZODIAZEPINE, URINE NEGATIVE (NEG <=150); CANNABINOID, URINE NEGATIVE (NEG <=50); COCAINE, URINE NEGATIVE (NEG <=150); METHAMPHETAMINES SCREEN,URINE NEGATIVE (NEG <=500); OPIATE, URINE NEGATIVE (NEG <=100); PHENCYCLIDINE SCREEN,URINE NEGATIVE (NEG <=25); UR TRICYCLIC ANTIDEPRESSANTS NEGATIVE (NEG <=300); URINE AMPHETAMINE POSITIVE (NEG <=500); URINE METHADONE NEGATIVE (NEG <=200); URINE OXYCODONE SCREEN NEGATIVE (NEG <=100); URINE PROPOXYPHENE SCREEN NEGATIVE (NEG <=300)
== END 2019-09-25 23:07 | disposition home or self-care (01) ==
LOC: SED 18:43
DX: S22.31XA Fracture of one rib, right side, initial encounter for closed fracture (principal); E87.6 Hypokalemia; J44.9 Chronic obstructive pulmonary disease, unspecified; I10 Essential (primary) hypertension; K21.9 Gastro-esophageal reflux disease without esophagitis; E07.9 Disorder of thyroid, unspecified; Z86.14 Personal history of Methicillin resistant Staphylococcus aureus infection; Z90.710 Acquired absence of both cervix and uterus; Z20.828 Contact with and (suspected) exposure to other viral communicable diseases; Z88.6 Allergy status to analgesic agent; Z88.1 Allergy status to other antibiotic agents; Z88.8 Allergy status to other drugs, medicaments and biological substances; W18.39XA Other fall on same level, initial encounter; Y93.89 Activity, other specified; Y92.89 Other specified places as the place of occurrence of the external cause; Y99.8 Other external cause status
CPT/HCPCS: 71045; 71100; 80053; 80307; 83880; 84484; 85025; 93005; 96372; 99285; C9803; J1885; U0003

== ENCOUNTER 2020-11-28 15:11 | Emergency (ER) | payer MEDICAID, SELFPAY ==
[~2020-11-28] VITALS: Ht 157.5 cm; Wt 74.8 kg
[~2020-11-28 15:11] MED LIST changes: +ALEN10TA25 PO; -ALEN10TA7 PO; -TRAZ-219 PO; +TRAZ-251 PO
[2020-11-28 15:14] VITALS: BP_SYST 111
--- NOTE | 2020-11-28 15:25 | NUR ---
Placed in room 7 . Placed on cafeteria monitor, blood pressure machine and pulse oximeter. To gown for exam. Side rails up.
--- NOTE | 2020-11-28 15:30 | NUR ---
PT CAME IN FROM HOME C/O PRUETT AND DULL NON-RADIATING CHEST PAIN X 3 DAYS. PT ALSO STATES SWELLING IN BLE AND DIZZINESS, SOB. REPORTS TODAY SHE HAD A NEAR SYNCOPLE EVENT AT HOME, WHEN STANDING BECAME DIZZY AND FELT LIKE SHE WOULD PASS OUT. SAT DOWN ON CHAIR AND SX IMPROVED. PT IS AAOX4, V/S STABLE UPON ARRIVAL, AMBULATORY WITH STEADY GAIT
--- NOTE | 2020-11-28 15:55 | NUR ---
ER DR. VELIZ AT THE BEDSIDE EXAMINING PT
--- NOTE | 2020-11-28 16:10 | NUR ---
# 20 gauge angiocath placed to RAC. Use of asceptic technique. Opsite placed over site. Blood return noted. Blood for lab drawn from site. Flushed with 10 cc of normal saline. No evidence of infiltration noted. Patient tolerated well.
--- NOTE | 2020-11-28 16:21 | NUR ---
PT AMBULATES TO BATHROOM WITH STEADY GAIT, REPORTS FEELING DIZZY, ESCORTED WITH STAFF
[2020-11-28 16:25] LABS: BASOPHILS # (AUTO) 0.1 K/uL (0.0-0.2); EOSINOPHILS # (AUTO) 0.1 K/uL (0.0-0.4); EOSINOPHILS % (AUTO) 2.3 % (0.0-4.0); HEMOGLOBIN 9.8 g/dL (12.0-16.0); LYMPHOCYTES # (AUTO) 1.6 K/uL (1.0-5.5); LYMPHOCYTES % (AUTO) 30.2 % (20.5-51.5); MEAN CORPUSCULAR HEMOGLOBIN 25 pg (27-31); MEAN CORPUSCULAR HGB CONC 32 % (32-36); MEAN CORPUSCULAR VOLUME 79 fL (79.0-98.0); MONOCYTES # (AUTO) 0.4 K/uL (0.0-1.0); MONOCYTES % (AUTO) 7.3 % (1.7-9.3); NEUTROPHILS # (AUTO) 3.1 K/uL (1.8-7.7); NEUTROPHILS % (AUTO) 59.2 % (40.0-70.0); PLATELET COUNT (AUTO) 327 K/uL (130-430); RED BLOOD CELL COUNT(AUTO) 3.93 MIL/uL (4.2-6.2); RED CELL DISTRIBUTION WIDTH 16.1 % (9.0-15.0); WHITE BLOOD COUNT (AUTO) 5.3 K/uL (4.8-10.8)
--- NOTE | 2020-11-28 16:30 | NUR ---
PORTABLE X-RAY AT THE BEDSIDE
[2020-11-28] MEDS ORDERED: NACL 0.9% 1,000 ML IV ONE (17:00)
--- NOTE | 2020-11-28 17:05 | NUR ---
Patient transported to radiology via WC, accompanied by STAFF.
[2020-11-28 17:08] LABS: CALCIUM 8.6 mg/dL (8.4-11.0); CREATININE 0.83 mg/dL (0.55-1.30); POTASSIUM 3.4 mmol/L (3.5-5.1)
[2020-11-28 17:13] LABS: ALBUMIN 3.3 g/dL (3.4-4.8); TOTAL BILIRUBIN 0.2 mg/dL (0.0-1.0)
[2020-11-28] MEDS ORDERED: KETOROLAC TROMETHAMINE 15 MG VIAL IVP ONE (17:45)
[2020-11-28] MEDS ORDERED: DIPHENHYDRAMINE INJ 50 MG/ML VIAL IVP ONE (18:00)
[2020-11-28] MEDS ORDERED: METOCLOPRAMIDE HCL 10 MG/2 ML VIAL IVP ONE (18:00)
--- NOTE | 2020-11-28 18:00 | NUR ---
Patient resting quietly. No acute distress noted. Vital signs within normal range.
--- NOTE | 2020-11-28 19:05 | NUR ---
REPORT GIVEN TO ZAHRA BEGUM FOR CONTINUING CARE
[2020-11-28] MEDS ORDERED: METO-290 PO (20:38)
[2020-11-28] MEDS ORDERED: DIPH25CA83 PO ×2 (20:39)
[2020-11-28 20:45] VITALS: BP_SYST 128
--- NOTE | 2020-11-28 20:45 | NUR ---
Patient given written and verbal discharge instructions and verbalizes understanding. ER MD discussed with patient the results and treatment provided. Patient in stable condition. ID arm band removed. IV catheter removed intact and dressing applied, no active bleeding. Rx of Benadryl and Reglan given. Patient educated on pain management and to follow up with PMD. Pain Scale 0/10 Opportunity for questions provided and answered. Medication side effect fact sheet provided.
[2020-11-29] MEDS ORDERED: DIPH25CA83 PO (11:51)
== END 2020-11-28 20:45 | disposition home or self-care (01) ==
LOC: SED 15:11
DX: R07.89 Other chest pain (principal); R42 Dizziness and giddiness; R51.9 Headache, unspecified; I10 Essential (primary) hypertension; J44.9 Chronic obstructive pulmonary disease, unspecified; K21.9 Gastro-esophageal reflux disease without esophagitis; Z88.5 Allergy status to narcotic agent; Z88.8 Allergy status to other drugs, medicaments and biological substances; Z79.899 Other long term (current) drug therapy
CPT/HCPCS: 36415; 70450; 71045; 76376; 80053; 83880; 84484; 85025; 93005; 96361; 96374; 96375; 99285; J1200; J1885; J2765; J7030

== ENCOUNTER 2021-03-07 20:22 | Emergency (ER) | payer MEDICAID, SELFPAY ==
[~2021-03-07] VITALS: Ht 157.5 cm; Wt 69.4 kg
[~2021-03-07 20:22] MED LIST changes: +DIPH25CA83 PO; +METO-290 PO
--- NOTE | 2021-03-07 20:22 | NUR ---
Patient to ER Tent 1 bed to gown for evaluation. Side rails up.
[2021-03-07 20:37] VITALS: BP_SYST 138
--- NOTE | 2021-03-07 20:44 | NUR ---
Pt BIB family to ED Tent C/O post COVID Exposure, nausea weakness for 1 week, with PRUETT and Bilat lower ext swollen VSS 100% O2sat on RA, No s/s of acute distress Resting on gurney rails up
--- NOTE | 2021-03-07 20:46 | NUR ---
Dr. Brand bedside for pt eval
--- NOTE | 2021-03-07 21:31 | NUR ---
Swabbed for COVID. Sent to the lab.
--- NOTE | 2021-03-07 22:16 | NUR ---
Patient given written and verbal discharge instructions and verbalizes understanding. ER MD discussed with patient the results and treatment provided. Patient in stable condition. ID arm band removed. no Rx of given. Patient educated on pain management and to follow up with PMD. Opportunity for questions provided and answered. Medication side effect fact sheet provided.
[2021-03-07 22:17] VITALS: BP_SYST 131
== END 2021-03-07 22:17 | disposition home or self-care (01) ==
LOC: SED 20:22
DX: U07.1 COVID-19 (principal); J44.9 Chronic obstructive pulmonary disease, unspecified; K21.9 Gastro-esophageal reflux disease without esophagitis; I63.9 Cerebral infarction, unspecified; E07.9 Disorder of thyroid, unspecified; I10 Essential (primary) hypertension; Z88.6 Allergy status to analgesic agent; Z88.1 Allergy status to other antibiotic agents; Z88.8 Allergy status to other drugs, medicaments and biological substances
CPT/HCPCS: 99283; C9803; U0003

== ENCOUNTER 2021-04-27 12:27 | Emergency (ER) | payer MEDICAID, SELFPAY ==
[~2021-04-27] VITALS: Ht 177.8 cm; Wt 74.8 kg
[2021-04-27 12:30] VITALS: BP_SYST 125
[2021-04-27] MEDS ORDERED: KETOROLAC TROMETHAMINE 60 MG/2 ML VIAL IM ONE (15:15)
[2021-04-27] MEDS ORDERED: LevALBUTEROL HCL 1.25 MG/0.5 ML *CONC.* VIAL.NEB (XOPENEX CONC.) INH ONE (15:30)
[2021-04-27 15:50] VITALS: BP_SYST 125
== END 2021-04-27 15:50 | disposition home or self-care (01) ==
LOC: SED 12:27
DX: R07.89 Other chest pain (principal); I10 Essential (primary) hypertension; K21.9 Gastro-esophageal reflux disease without esophagitis; J44.9 Chronic obstructive pulmonary disease, unspecified; Z88.5 Allergy status to narcotic agent; Z88.8 Allergy status to other drugs, medicaments and biological substances; Z79.899 Other long term (current) drug therapy; W10.8XXA Fall (on) (from) other stairs and steps, initial encounter; Y93.89 Activity, other specified; Y92.89 Other specified places as the place of occurrence of the external cause; Y99.8 Other external cause status
CPT/HCPCS: 71046; 94664; 96372; 99283; J1885; J7612

== ENCOUNTER 2021-11-20 19:52 | Emergency (ER) | payer MEDICAID ==
[~2021-11-20] VITALS: Ht 157.5 cm; Wt 72.1 kg
[2021-11-20 19:56] VITALS: BP_SYST 126
--- NOTE | 2021-11-20 20:01 | NUR ---
PATIENT STATES SHE HAS BEEN CONSTIPATED SINCE SATURDAY AND NOW HAS BLOOD AND MUCUS IN ANUS WHEN SHE WIPES. THIS IS ALSO WITH ABDOMINAL PAIN. NO N,V,D.
--- NOTE | 2021-11-20 20:42 | NUR ---
URINE SENT TO LAB.
[2021-11-20 21:04] LABS: BILIRUBIN,URINE NEGATIVE (NEGATIVE); BLOOD, URINE NEGATIVE (NEGATIVE); COLOR,URINE YELLOW (YELLOW); GLUCOSE,URINE NEGATIVE (NEGATIVE); KETONES,URINE TRACE (NEGATIVE); LEUKOCYTE ESTERASE ,URINE NEGATIVE (NEGATIVE); NITRITE, URINE NEGATIVE (NEGATIVE); PROTEIN URINE 2+ (NEGATIVE); UROBILINOGEN,URINE 0.2 (0.2-1.0)
[2021-11-20 21:35] LABS: BASOPHILS # (AUTO) 0.3 K/uL (0.0-0.2); BASOPHILS % (AUTO) 3.8 % (0.0-2.0); EOSINOPHILS # (AUTO) 0.1 K/uL (0.0-0.4); EOSINOPHILS % (AUTO) 0.8 % (0.0-4.0); HEMATOCRIT 36.1 % (36-48); LYMPHOCYTES # (AUTO) 0.6 K/uL (1.0-5.5); LYMPHOCYTES % (AUTO) 8.8 % (20.5-51.5); MEAN CORPUSCULAR VOLUME 82 fL (79.0-98.0); MONOCYTES # (AUTO) 0.6 K/uL (0.0-1.0); MONOCYTES % (AUTO) 8.4 % (1.7-9.3); NEUTROPHILS # (AUTO) 5.3 K/uL (1.8-7.7); NEUTROPHILS % (AUTO) 78.2 % (40.0-70.0); PLATELET COUNT (AUTO) 312 K/uL (130-430); RED BLOOD CELL COUNT(AUTO) 4.42 MIL/uL (4.2-6.2); RED CELL DISTRIBUTION WIDTH 16.1 % (9.0-15.0); WHITE BLOOD COUNT (AUTO) 6.8 K/uL (4.8-10.8)
[2021-11-20 21:39] LABS: CREATININE 1.47 mg/dL (0.55-1.30); POTASSIUM 3.2 mmol/L (3.5-5.1)
[2021-11-20 21:45] LABS: ALBUMIN 3.6 g/dL (3.4-4.8); TOTAL BILIRUBIN 0.4 mg/dL (0.0-1.0)
--- NOTE | 2021-11-20 22:20 | NUR ---
PT TAKEN TO CT
[2021-11-20 22:41] LABS: CLARITY/URINE HAZY (CLEAR)
[2021-11-20 22:44] LABS: BACTERIA,URINE FEW /HPF (None Seen); RBC,URINE NONE SEEN /HPF (0-3); WBC,URINE 0-3 /HPF (0-3)
[2021-11-20 22:45] LABS: OTHER CASTS, URINE CELLULAR CAST /LPF (None Seen)
[2021-11-20] MEDS ORDERED: METR-154 PO (23:34)
[2021-11-20] MEDS ORDERED: MAGN296S8 PO (23:34)
[2021-11-20] MEDS ORDERED: CIPR500T5 PO (23:34)
[2021-11-20] MEDS ORDERED: FLEETMO RC (23:42)
[2021-11-20] MEDS ORDERED: POTASSIUM CHLORIDE 20 MEQ/PKT PACKET PO ONE (23:45)
[2021-11-20] MEDS ORDERED: DICYCLOMINE HCL 10 MG CAPSULE PO ONE (23:45)
[2021-11-20] MEDS ORDERED: DICYCLOMINE HCL 10 MG/5 ML SOLUTION ONE (23:58)
[2021-11-21] MEDS ORDERED: DICYCLOMINE HCL 10 MG/5 ML SOLUTION PO ONE
[2021-11-21 00:15] VITALS: BP_SYST 126
--- NOTE | 2021-11-21 00:15 | NUR ---
Patient given written and verbal discharge instructions and verbalizes understanding. ER MD discussed with patient the results and treatment provided. Patient in stable condition. ID arm band removed. Rx of CIPRO, MAGNESIUM, METRONIDAZOLE given. Patient educated on pain management and to follow up with PMD. Pain Scale 2/10. Opportunity for questions provided and answered. Medication side effect fact sheet provided.
== END 2021-11-21 00:15 | disposition home or self-care (01) ==
LOC: SED 19:52
DX: K59.00 Constipation, unspecified (principal); K57.92 Diverticulitis of intestine, part unspecified, without perforation or abscess without bleeding; R10.9 Unspecified abdominal pain; R11.2 Nausea with vomiting, unspecified; J44.9 Chronic obstructive pulmonary disease, unspecified; K21.9 Gastro-esophageal reflux disease without esophagitis; Z91.041 Radiographic dye allergy status; Z88.6 Allergy status to analgesic agent; Z88.8 Allergy status to other drugs, medicaments and biological substances; Z79.899 Other long term (current) drug therapy
CPT/HCPCS: 36415; 76376; 80053; 81000; 83690; 85025; 99284

== ENCOUNTER 2022-03-09 20:06 | Emergency (ER) | payer MEDICAID ==
[~2022-03-09] VITALS: Ht 157.5 cm; Wt 63.5 kg
[~2022-03-09 20:06] MED LIST changes: +CIPR500T5 PO; +FLEETMO RC; +MAGN296S8 PO; +METR-154 PO
[2022-03-09 20:14] VITALS: BP_SYST 122
--- NOTE | 2022-03-09 20:23 | NUR ---
PATIENT SEEN IN TRIAGE BY ER MD AND INFORMED OF PLAN OF CARE.
[2022-03-09 20:59] LABS: BILIRUBIN,URINE NEGATIVE (NEGATIVE); BLOOD, URINE NEGATIVE (NEGATIVE); CLARITY/URINE CLEAR (CLEAR); COLOR,URINE YELLOW (YELLOW); GLUCOSE,URINE NEGATIVE (NEGATIVE); KETONES,URINE TRACE (NEGATIVE); LEUKOCYTE ESTERASE ,URINE NEGATIVE (NEGATIVE); NITRITE, URINE NEGATIVE (NEGATIVE); PROTEIN URINE TRACE (NEGATIVE); UROBILINOGEN,URINE 0.2 (0.2-1.0)
[2022-03-09 21:05] LABS: BACTERIA,URINE FEW /HPF (None Seen); MUCUS,URINE None Seen /LPF (None Seen); RBC,URINE 0-3 /HPF (0-3); WBC,URINE 0-3 /HPF (0-3)
[2022-03-09 21:13] LABS: BASOPHILS # (AUTO) 0.1 K/uL (0.0-0.2); BASOPHILS % (AUTO) 1.3 % (0.0-2.0); EOSINOPHILS # (AUTO) 0.2 K/uL (0.0-0.4); EOSINOPHILS % (AUTO) 3.3 % (0.0-4.0); LYMPHOCYTES # (AUTO) 1.9 K/uL (1.0-5.5); LYMPHOCYTES % (AUTO) 42.8 % (20.5-51.5); MEAN CORPUSCULAR HEMOGLOBIN 27 pg (27-31); MEAN CORPUSCULAR HGB CONC 32 % (32-36); MEAN CORPUSCULAR VOLUME 84 fL (79.0-98.0); MONOCYTES # (AUTO) 0.3 K/uL (0.0-1.0); MONOCYTES % (AUTO) 6.4 % (1.7-9.3); NEUTROPHILS # (AUTO) 2.1 K/uL (1.8-7.7); NEUTROPHILS % (AUTO) 46.2 % (40.0-70.0); PLATELET COUNT (AUTO) 336 K/uL (130-430); RED BLOOD CELL COUNT(AUTO) 4.39 MIL/uL (4.2-6.2); RED CELL DISTRIBUTION WIDTH 16.6 % (9.0-15.0); WHITE BLOOD COUNT (AUTO) 4.5 K/uL (4.8-10.8)
[2022-03-09 21:28] LABS: ALBUMIN 3.8 g/dL (3.4-4.8); CALCIUM 8.8 mg/dL (8.4-11.0); CREATININE 0.96 mg/dL (0.55-1.30); TOTAL BILIRUBIN 0.2 mg/dL (0.0-1.0)
[2022-03-09] MEDS ORDERED: POTASSIUM CHLORIDE 20 MEQ TAB.PRT.SR PO ONE (23:00)
[2022-03-09] MEDS ORDERED: DICYCLOMINE HCL 20 MG/2 ML AMP IM ONE (23:00)
[2022-03-09] MEDS ORDERED: CIPR500T5 PO ×2 (23:10)
[2022-03-09] MEDS ORDERED: POTA-197 PO (23:10)
[2022-03-09] MEDS ORDERED: DICY10CA13 PO (23:10)
[2022-03-09] MEDS ORDERED: METR-154 PO ×2 (23:10)
[2022-03-09] MEDS ORDERED: AUG875 PO (23:55)
[2022-03-10 00:07] VITALS: BP_SYST 122
--- NOTE | 2022-03-10 00:08 | NUR ---
Patient given written and verbal discharge instructions and verbalizes understanding. ER MD discussed with patient the results and treatment provided. Patient in stable condition. ID arm band removed. Rx of AUGMENTIN, DICYLOCMING, K-DUR given. Patient educated on pain management and to follow up with PMD. Pain Scale . Opportunity for questions provided and answered. Medication side effect fact sheet provided.
== END 2022-03-09 23:28 | disposition home or self-care (01) ==
LOC: SED 20:06
DX: K59.00 Constipation, unspecified (principal); K57.92 Diverticulitis of intestine, part unspecified, without perforation or abscess without bleeding; E87.6 Hypokalemia; R11.10 Vomiting, unspecified; J44.9 Chronic obstructive pulmonary disease, unspecified; K21.9 Gastro-esophageal reflux disease without esophagitis; I10 Essential (primary) hypertension; Z88.6 Allergy status to analgesic agent; Z88.8 Allergy status to other drugs, medicaments and biological substances; Z79.899 Other long term (current) drug therapy
CPT/HCPCS: 99285; 74176; 80053; 81000; 83690; 85025; 87040; 36415; 93005; 76376; 96372; J0500

== ENCOUNTER 2022-10-08 16:24 | Emergency (ER) | payer MEDICAID ==
[~2022-10-08] VITALS: Ht 157.5 cm; Wt 63.5 kg
[~2022-10-08 16:24] MED LIST changes: +AUG875 PO; +DICY10CA13 PO; +POTA-197 PO
[2022-10-08 16:55] VITALS: BP_SYST 146; PULSE 73; RESP 16; TEMP 97.7; O2SAT 95
[2022-10-08 17:46] LABS: BASOPHILS % (AUTO) 1.1 % (0.0-2.0); EOSINOPHILS # (AUTO) 0.1 K/uL (0.0-0.4); EOSINOPHILS % (AUTO) 1.3 % (0.0-4.0); HEMOGLOBIN 12.3 g/dL (12.0-16.0); LYMPHOCYTES # (AUTO) 1.6 K/uL (1.0-5.5); LYMPHOCYTES % (AUTO) 39.5 % (20.5-51.5); MEAN CORPUSCULAR HEMOGLOBIN 28 pg (27-31); MEAN CORPUSCULAR HGB CONC 32 % (32-36); MEAN CORPUSCULAR VOLUME 87 fL (79.0-98.0); MONOCYTES # (AUTO) 0.4 K/uL (0.0-1.0); MONOCYTES % (AUTO) 10.2 % (1.7-9.3); NEUTROPHILS # (AUTO) 1.9 K/uL (1.8-7.7); NEUTROPHILS % (AUTO) 47.9 % (40.0-70.0); PLATELET COUNT (AUTO) 220 K/uL (130-430); RED BLOOD CELL COUNT(AUTO) 4.37 MIL/uL (4.2-6.2); RED CELL DISTRIBUTION WIDTH 15.1 % (9.0-15.0); WHITE BLOOD COUNT (AUTO) 3.9 K/uL (4.8-10.8)
[2022-10-08 17:54] LABS: ANION GAP 6 (5-15); CALCIUM 8.2 mg/dL (8.4-11.0); CARBON DIOXIDE 26 mmol/L (23-29); CHLORIDE 103 mmol/L (98-107); CREATININE 0.79 mg/dL (0.55-1.30); GFR AFRICAN AMERICAN 95 mL/min (>90); GLUCOSE 100 mg/dL (74-106); POTASSIUM 3.1 mmol/L (3.5-5.1); SODIUM SERUM 135 mmol/L (136-145); UREA NITROGEN, BLOOD 17 mg/dL (8-21)
[2022-10-08 17:56] LABS: BILIRUBIN,URINE NEGATIVE (NEGATIVE); BLOOD, URINE NEGATIVE (NEGATIVE); CLARITY/URINE CLEAR (CLEAR); COLOR,URINE YELLOW (YELLOW); GLUCOSE,URINE NEGATIVE (NEGATIVE); KETONES,URINE NEGATIVE (NEGATIVE); LEUKOCYTE ESTERASE ,URINE NEGATIVE (NEGATIVE); NITRITE, URINE NEGATIVE (NEGATIVE); PH,URINE 5.5 (5.0-8.0); PROTEIN URINE NEGATIVE (NEGATIVE); UROBILINOGEN,URINE 0.2 (0.2-1.0)
[2022-10-08 17:59] LABS: ALANINE AMINOTRANSFERASE 19 U/L (12-78); ALBUMIN 3.6 g/dL (3.4-4.8); ASPARTATE AMINOTRANSFERASE 23 U/L (10-37); LIPASE 125 U/L (73-393); TOTAL BILIRUBIN 0.3 mg/dL (0.0-1.0); TOTAL PROTEIN, SERUM 7.1 g/dL (6.4-8.3)
[2022-10-08 18:00] LABS: GFR NON AFRICAN-AMERICAN 78 mL/min (>90)
[2022-10-08] MEDS ORDERED: KETOROLAC TROMETHAMINE 30 MG VIAL IVP ONE (18:30)
[2022-10-08] MEDS ORDERED: HYDROmorphone 1 MG/ML INJ. CARTRIDGE IVP ONE (20:30)
[2022-10-08] MEDS ORDERED: MELO-89 PO (20:34)
[2022-10-08] MEDS ORDERED: POTASSIUM CHLORIDE 20 MEQ/PKT PACKET PO ONE (21:00)
[2022-10-08 21:22] VITALS: BP_SYST 110; PULSE 84; RESP 18; TEMP 98.1; O2SAT 96
== END 2022-10-08 21:22 | disposition home or self-care (01) ==
LOC: SED 16:24
DX: N20.0 Calculus of kidney (principal); R10.9 Unspecified abdominal pain; R22.43 Localized swelling, mass and lump, lower limb, bilateral; J44.9 Chronic obstructive pulmonary disease, unspecified; K21.9 Gastro-esophageal reflux disease without esophagitis; I10 Essential (primary) hypertension; Z88.5 Allergy status to narcotic agent; Z88.6 Allergy status to analgesic agent; Z91.041 Radiographic dye allergy status; Z79.899 Other long term (current) drug therapy
CPT/HCPCS: 99285; 74176; 96374; 96375; 80053; 83880; 83690; 85025; 84484; 36415; 76376; 81003; J1885; J1170